=== PATIENT | male | born 1975 | race Caucasian/White ===

== ENCOUNTER 2016-09-18 09:49 | Day surgery (SDC) | payer OTHER ==
[2016-09-18] MEDS ORDERED: MIDAZOLAM 2 MG/2 ML INJ ONE ×2 (10:44→11:56)
[2016-09-18] MEDS ORDERED: METOCLOPRAMIDE HCL INJ/PF 10 MG/2 ML SDV ONE (10:44)
[2016-09-18] MEDS ORDERED: ONDANSETRON HCL INJ/PF 4 MG/2 ML SDV ONE ×2 (10:45→11:57)
[2016-09-18] MEDS ORDERED: FENTANYL CITRATE INJ/PF 250 MCG/5 ML AMPULE ONE (10:45)
[2016-09-18] MEDS ORDERED: PROPOFOL INJ 200 MG/20 ML VIAL IV ONE ×2 (10:45→11:57)
[2016-09-18] MEDS ORDERED: SUCCINYLCHOLINE CHLORIDE INJ 200 MG/10 ML VIAL ONE ×2 (10:45→11:57)
[2016-09-18] MEDS ORDERED: DEXAMETHASONE SOD PHOS INJ 10 MG/1 ML VIAL ONE (10:45)
[2016-09-18] MEDS ORDERED: LIDOCAINE 2% INJ-PF (20 MG/ML) 10 ML AMPUL ONE (10:46)
[2016-09-18] MEDS ORDERED: OXYMETAZOLINE HCL 0.05% NASAL SPRAY 15 ML BOTTLE ONE (11:26)
[2016-09-18] MEDS ORDERED: LIDOCAINE 2%/EPINEPHRINE INJ 20 ML VIAL ONE ×2 (11:26→12:33)
[2016-09-18] MEDS ORDERED: DEXAMETHASONE SOD PHOSPHATE INJ 4 MG/1 ML VIAL ONE (11:56)
[2016-09-18] MEDS ORDERED: FENTANYL CITRATE INJ/PF 100 MCG/2 ML AMPUL ONE (11:57)
--- NOTE | 2016-09-18 15:03 | OPERATIVE REPORT E ---
Operative Report NAME: AIDA LINDER : 1975 AGE: 41Y DATE OF SURGERY: 09/18/2016 ROOM: INDICATIONS FOR THE PROCEDURE: This is a 41-year-old male with a history of deviated and septum and nasal obstruction. Please see his outpatient medical record for complete details regarding his history and examination. PREOPERATIVE DIAGNOSES: 1. Deviated nasal septum. 2. Nasal obstruction bilaterally. 3. Inferior turbinate hypertrophy bilaterally. POSTOPERATIVE DIAGNOSES: 1. Deviated nasal septum. 2. Nasal obstruction bilaterally. 3. Inferior turbinate hypertrophy bilaterally. PROCEDURES PERFORMED: 1. Septoplasty. 2. Outfracture of inferior nasal turbinates. 3. Submucosal resection of turbinate. FINDINGS: 1. Deviated nasal septum. 2. Inferior turbinate hypertrophy. PRIMARY SURGEON: DESTINY MORGAN M.D. ESTIMATED BLOOD LOSS: 20 mL. DESCRIPTION OF PROCEDURE: After properly identifying the patient, obtaining informed consent, and verifying the surgical site, the patient was brought to the main operating room, placed in the supine position, and general endotracheal anesthesia was obtained in a standard fashion. Surgical timeout was then performed. The nose was prepped in the usual fashion with topical Afrin on cotton pledgets as well as direct infiltration of the nasal septum and inferior turbinates with 2% lidocaine with 1:100,000 epinephrine. The patient was then draped in the usual manner for nasal surgery. A hemitransfixion incision was made on the left-hand side and a mucoperichondrial and periosteal flap was then elevated. The bony cartilaginous junction of the septum was identified and disarticulated and the contralateral mucoperiosteal flap was elevated. Deviated portions of the perpendicular plate of the ethmoid and vomer were resected. An incision was then made in the quadrangular cartilage 1 cm from the caudal margin and dorsal margin and then a contralateral mucoperichondrial flap was then elevated and connected to the preexisting mucoperiosteal flap. Deviated portions of the quadrangular cartilage were then conservatively resected, leaving at least 1 cm dorsal and caudal struts. Next, the hemitransfixion incision was reapproximated using a running 4-0 Chromic suture and then a whipstitch was placed back and forth across the septum to reapproximate the flaps. The inferior turbinates, first right and then left, were addressed with the submucosal resection using the microdebrider. This was followed by bilateral inferior turbinate outfracture. Next, Bacitracin-soaked Nava splints were then placed into each nasal cavity and sewn in place using a 2-0 Prolene suture. At this point in time, the case was concluded. The patient was returned to Anesthesia. He was awoken in the operating room and taken to the PACU in stable condition, having tolerated the procedure well. DICTATING PHYSICIAN: DESTINY MORGAN M.D. [id number] PHY#: [id number] ID: [id number] JOB#: [id number] ACCT: [id number] cc:DESTINY MORGAN M.D. >
== END 2016-09-18 15:01 | disposition home or self-care (01) ==
LOC: SC 09:49
PROVIDERS: ATTEND Otolaryngology
PROC: 09BM4ZZ Excision of Nasal Septum, Percutaneous Endoscopic Approach (ICD-10-PCS; principal; 2016-09-18 11:15)
PROC: 09TL8ZZ Resection of Nasal Turbinate, Via Natural or Artificial Opening Endoscopic (ICD-10-PCS; 2016-09-18 11:15)
DX: J34.2 Deviated nasal septum (principal); J34.3 Hypertrophy of nasal turbinates; J34.89 Other specified disorders of nose and nasal sinuses
CPT/HCPCS: 30140; 30520; J2250; J1100; J3010; J3490 ×2; J0330; J2405; J2704; 160; J2765